=== PATIENT | female | born 1955 | race Caucasian/White ===

== ENCOUNTER 2021-03-05 18:35 | Emergency (ER) | payer MEDICARE, OTHER ==
[~2021-03-05] VITALS: Ht 157.5 cm; Wt 72.6 kg
--- NOTE | 2021-03-05 19:10 | NUR ---
Handsoff report given to Frederick shift engineer RN.
[2021-03-05] MEDS ORDERED: CEPH500T PO (19:22)
[2021-03-05] MEDS ORDERED: ONDA4TAB5 PO (19:22)
[2021-03-05] MEDS ORDERED: HYDR-4209 PO (19:22)
[2021-03-05] MEDS ORDERED: SULF1TAB48 PO (19:22)
[2021-03-05] MEDS ORDERED: SULFAMETH/TRIMETH 800/160 MG TABLET PO ONE (19:30)
--- NOTE | 2021-03-05 19:35 | NUR ---
[facility] EDMD Dr. Calvillo at pt bedside finishing up I&D procedure. verbal order given to apply bulky finger dressing on Lt 3rd digit using 2in tube gauze. I&D site and entire lt hand cleansed with NS/betadine soln. hand clean and dry, with no blood stains. Tube dressing applyed to Lt 3rd digit deliberatly, making sure not to make dressing too tight or constrictive. Pt confirms that dressing is not too tight. Pt told that if dressing becomes constrictive or starts to hurt or if it is soiled, to remove the dressing right away and either redress with guaze and tape or to return to ED for redress of finger. Pt has good color and appearance. VSS, PE WNL, lungs clear, oxygenating and perfusing well, RRR, normal s1s2, AAOx4, strong and equal visual education director strength and strong and reg pulses [id number]. Pt in good spirits aeb smiling and thankful demeanor.
[2021-03-05] MEDS ORDERED: SULFAMETH/TRIMETH 800/160 MG TABLET ONE (19:44)
--- NOTE | 2021-03-05 19:45 | NUR ---
Aftercare instructions given to pt and pt's daughter to interpret to the pt. Pt acknowledges understanding of instructions. Bactrim loading dose given to pt. Pt DCed home w/ daughter via walking. Pt very thankful of services provided.
[2021-03-05 20:14] VITALS: BP 137/85
== END 2021-03-05 19:50 | disposition home or self-care (01) ==
LOC: ER 18:38
DX: L03.012 Cellulitis of left finger (principal)
CPT/HCPCS: 26011; 99284; J3490; A4663

== ENCOUNTER 2021-03-06 09:28 | Emergency (ER) | payer MEDICARE, OTHER ==
[~2021-03-06] VITALS: Ht 165.1 cm; Wt 81.6 kg
[~2021-03-06 09:28] MED LIST: CEPH500T PO; HYDR-4209 PO; ONDA4TAB5 PO; SULF1TAB48 PO
--- NOTE | 2021-03-06 10:04 | NUR ---
PT WAS EVALUATED BY DR CABEZAS. PT WAS D/C'd TO HOME. D/C INSTRUCTIONS GIVEN TO THE PT BY DR CABEZAS.
[2021-03-06 10:05] VITALS: BP 132/84
== END 2021-03-06 10:06 | disposition home or self-care (01) ==
LOC: ER 09:28
DX: Z48.817 Encounter for surgical aftercare following surgery on the skin and subcutaneous tissue (principal); L03.012 Cellulitis of left finger
CPT/HCPCS: A4663

== ENCOUNTER 2021-03-07 10:56 | Emergency (ER) | payer MEDICARE, OTHER ==
[~2021-03-07] VITALS: Ht 157.5 cm; Wt 72.6 kg
--- NOTE | 2021-03-07 11:05 | NUR ---
PATIENT WAS MSE BY DR HUERTA IN ROOM 04A.
[2021-03-07] MEDS ORDERED: LIDOCAINE HCL 1% 20 ML VIAL IJ ONE (11:15)
[2021-03-07] MEDS ORDERED: LIDOCAINE HCL 1% 20 ML VIAL ONE (11:22)
[2021-03-07 11:50] VITALS: BP 115/77
--- NOTE | 2021-03-07 11:51 | NUR ---
Patient discharged to home in stable condition. Written and verbal after care instructions given. Patient verbalizes understanding of instructions. Stressed follow up or return to ER for worsening s/s.
== END 2021-03-07 11:57 | disposition home or self-care (01) ==
LOC: ER 10:56
DX: Z48.817 Encounter for surgical aftercare following surgery on the skin and subcutaneous tissue (principal); L03.012 Cellulitis of left finger
CPT/HCPCS: 96372; 99283; J3490; A4217; A4663